=== PATIENT | female | born 1995 | race Caucasian/White ===

== ENCOUNTER 2018-02-05 22:42 | Emergency (ER) | payer BC ==
--- NOTE | 2018-02-05 23:24 | ER Report ---
History and Physical Time Seen By MD: 23:14 Hx. of Stated Complaint: INCREASE URINATION, BACK PAIN HPI/ROS CHIEF COMPLAINT: Probable urinary tract infection HISTORY OF PRESENT ILLNESS: Patient is a 22-year-old female who presents with a few hours of urinary frequency, urgency, and lower abdominal pressure sensation with some discomfort into the low back. Patient has history of previous UTIs and states symptoms feel similar. Last UTI was approximately 6 months ago. At that time she "slept on it overnight" and ended up with a diagnosis of pyelonephritis. She comes in now for evaluation and early treatment. She denies fever or chills. Has had no nausea or vomiting. She has been hydrating well. She denies . She has had no significant blood in the urine. She denies vaginal discharge or abnormal vaginal bleeding. Review of systems: General: No fevers chills HEENT: Negative Cardiac: Negative Respiratory: Negative GI: Denies nausea or vomiting. Has had no diarrhea or constipation : As per history of present illness Allergies: Coded Allergies: No Known Drug Allergies (Unverified , 02/05/18) Home Meds Active Scripts Phenazopyridine Hcl (PHENAZOPYRIDINE HCL) 200 Mg Tablet, 200 MG PO TID for 2 Days, TAB Prov:MARIO CASTANON MD 02/06/18 Nitrofurantoin Monohyd/M-Cryst (MACROBID 100 MG CAPSULE) 100 Mg Capsule, 100 MG PO BID for 5 Days, CAPSULE Prov:MARIO CASTANON MD 02/06/18 Hx Substance Use Disorder: No Hx Alcohol Use: No Constitutional Vital Sign - Last 24 Hours 02/05/18 22:49 Temp 98.4 Pulse 76 Resp 14 B/P (MAP) 146/84 Pulse Ox 95 O2 Delivery Room Air Physical Exam Gen.: Patient is awake alert and appropriate in no acute distress HEENT: Normocephalic and atraumatic Lungs: Normal respiratory rate and oxygen saturation Cardiovascular: Regular rate and rhythm Abdomen: Nondistended. Positive bowel sounds. Soft. Minimal tenderness suprapubic but no guarding or rebound. No referred tenderness. Minimal discomfort with CVA percussion bilaterally. Extremities: Unremarkable by 4 with no peripheral edema Neurologic: Alert oriented and appropriate without focal findings Medical Decision Making Data Points Laboratory Hematology Test 02/05/18 22:48 Urine Color Colorless Urine Clarity Clear Urine pH 7.0 pH (4.8-9.5) Urine Specific [place] 1.001 Urine Protein Negative mg/dL (NEGATIVE) Urine Glucose (UA) Negative mg/dL (NEGATIVE) Urine Ketones Negative mg/dL (NEGATIVE) Urine Blood Small (NEGATIVE) Urine Nitrite Negative (NEGATIVE) Urine Bilirubin Negative (NEGATIVE) Urine Urobilinogen Negative mg/dL (0.2-1.9) Urine Leukocyte Esterase Negative (NEGATIVE) Urine RBC None /HPF (0-2/HPF) Urine WBC 1 /HPF (0-5/HPF) Urine Squamous Epithelial Cells Few /LPF (</=FEW) Urine Bacteria Negative /HPF (NONE-FEW) Urine Mucus None /HPF (NONE-FEW) Urine HCG, Qualitative Negative (NEGATIVE) Chemistry Test 02/05/18 22:48 Urine Color Colorless Urine Clarity Clear Urine pH 7.0 pH (4.8-9.5) Urine Specific [place] 1.001 Urine Protein Negative mg/dL (NEGATIVE) Urine Glucose (UA) Negative mg/dL (NEGATIVE) Urine Ketones Negative mg/dL (NEGATIVE) Urine Blood Small (NEGATIVE) Urine Nitrite Negative (NEGATIVE) Urine Bilirubin Negative (NEGATIVE) Urine Urobilinogen Negative mg/dL (0.2-1.9) Urine Leukocyte Esterase Negative (NEGATIVE) Urine RBC None /HPF (0-2/HPF) Urine WBC 1 /HPF (0-5/HPF) Urine Squamous Epithelial Cells Few /LPF (</=FEW) Urine Bacteria Negative /HPF (NONE-FEW) Urine Mucus None /HPF (NONE-FEW) Urine HCG, Qualitative Negative (NEGATIVE) Urinalysis Test 02/05/18 22:48 Urine Color Colorless Urine Clarity Clear Urine pH 7.0 pH (4.8-9.5) Urine Specific [place] 1.001 Urine Protein Negative mg/dL (NEGATIVE) Urine Glucose (UA) Negative mg/dL (NEGATIVE) Urine Ketones Negative mg/dL (NEGATIVE) Urine Blood Small (NEGATIVE) Urine Nitrite Negative (NEGATIVE) Urine Bilirubin Negative (NEGATIVE) Urine Urobilinogen Negative mg/dL (0.2-1.9) Urine Leukocyte Esterase Negative (NEGATIVE) Urine RBC None /HPF (0-2/HPF) Urine WBC 1 /HPF (0-5/HPF) Urine Squamous Epithelial Cells Few /LPF (</=FEW) Urine Bacteria Negative /HPF (NONE-FEW) Urine Mucus None /HPF (NONE-FEW) Urine HCG, Qualitative Negative (NEGATIVE) ED Course/Re-evaluation ED Course In this patient presenting with low pelvic pressure, urinary frequency, and urinary urgency is certainly considered the possibility of UTI. I also considered the possibility of renal stone, , [employer] etiologies, and GI issues. In this particular patient she does not have a urine showing significant evidence of infection but it is extremely dilute. She is showing no evidence of and has a negative hCG. She has no symptoms consistent with other diagnostic concerns. I think her symptoms are consistent with a very early cystitis with a dilute urine not yet showing. I'm going to treat empirically based on her history and symptoms. Urine culture will be sent. In the department, patient was given an initial dose at discharge of Macrobid and Pyridium. I will continue her on a 5 day prescription of Macrobid and a 2 day prescription of Pyridium if needed. She is encouraged to increase fluids. I have discussed signs and symptoms of upper tract disease for which she should return. I also stated that if any new symptoms develop that should be reevaluated or if her symptoms are not resolved within 2-3 days that should be reevaluated. Decision to Disposition Date: February 06, 2018 Decision to Disposition Time: 00:08 Depart Departure Latest Vital Signs Vital Signs Date Time Temp Pulse Resp B/P (MAP) Pulse Ox O2 Delivery O2 Flow Rate FiO2 02/05/18 22:49 98.4 76 14 146/84 95 Room Air Impression: Primary Impression: Dysuria Condition: Condition Unchanged Disposition: HOME OR SELF-CARE New Scripts Phenazopyridine Hcl (PHENAZOPYRIDINE HCL) 200 Mg Tablet 200 MG PO TID for 2 Days, TAB Prov: MARIO CASTANON MD 02/06/18 Nitrofurantoin Monohyd/M-Cryst (MACROBID 100 MG CAPSULE) 100 Mg Capsule 100 MG PO BID for 5 Days, CAPSULE Prov: MARIO CASTANON MD 02/06/18 Departure Forms: ER Transition Record, Medications Reconciliation, Patient Portal Information Patient Instructions: Urinary Tract Infection in Women (ED) Additional Instructions: Patient is discharged home in stable condition Additional verbal discharge instructions were given and discussed with the patient I instructed the patient to return if they got worse, did not get better and the expected time, or if any new concerning symptoms develop. MARIO CASTANON MD February 05, 2018 23:24
[2018-02-06] MEDS ORDERED: PHEN200T32 PO (00:03)
[2018-02-06] MEDS ORDERED: NITR-105 PO (00:03)
[2018-02-06] MEDS ORDERED: PHENAZOPYRIDINE 200 MG TAB TH 2 TAB/BOTTLE PO ONE (00:10)
[2018-02-06] MEDS ORDERED: NITROFURANTOIN MONO 100 MG PO ONE (00:10)
[2018-02-06 00:20] VITALS: BP 121/79
== END 2018-02-06 00:24 | disposition home or self-care (01) ==
LOC: ER 23:29
DX: R30.0 Dysuria (principal)
CPT/HCPCS: 81001; 81025; 87088; 99282